=== PATIENT | female | born 2005 | race Caucasian/White ===

== ENCOUNTER 2024-05-30 12:05 | Inpatient (IN) | payer OTHER, SELFPAY ==
[2024-05-30] VITALS (21 sets, daily range): BP systolic 121–170; BP diastolic 68–112; BMI 34.2; BMI 33.5
[2024-05-30] MEDS: NSS 1000 IV (09:07)
[2024-05-30 09:14] LABS: % Basophils 0.5 % (0-2); % Immature Granulocytes 0.3 % (0-0.5); % Lymphocytes 10.5 % (20.5-51.1); % Monocytes 9.4 % (1.7-9.3); % Neutrophils 79.3 % (42.2-75.2); Absolute Basophils 0.1 10^3/uL (0-0.2); Absolute Monocytes 0.9 10^3/uL (0.1-0.6); Absolute Neutrophils 7.7 10^3/uL (1.4-6.5); Hematocrit 43.9 % (37.0-47.0); Hemoglobin 15.2 g/dL (12.0-16.0); Mean Corp Hgb Conc. 34.6 g/dL (33.0-37.0); Mean Corpuscular Hgb 28.6 pg (27.0-31.0); Mean Corpuscular Volume 82.5 fL (81.0-99.0); Mean Platelet Volume 10.4 fL (7.4-10.4); Nucleated Red Blood Cells % 0 %; Platelet Count 362 10^3/uL (130-400); Red Blood Cell Count 5.32 10^6/uL (4.20-5.40); Red Cell Dist. Width 13.2 % (11.5-14.5); White Blood Cell Count 9.7 10^3/uL (4.8-10.8)
--- NOTE | 2024-05-30 09:16 | ED.GENMED ---
History of Present Illness
General
Chief Complaint: Overdose Intentional
Source: patient
Exam Limitations: none
Time Seen by Provider: 05/30/24 08:52
Nursing documentation reviewed up to this point in time: agreed with
History of Present Illness
History of Present Illness:
19-year-old female with past with history of anxiety depression presenting to the emergency department today after purposely taking roughly 20 to 40 mg of Vyvanse, potentially 65 mg Abilify tablets and 'a handful' of Tylenol though it is very
unclear how many specifically she is unable to give any specific information about the Tylenol ingested she denies take additional Lexapro which was also confirmed by the mother. It was estimated that she took this around 7 AM which was 2 hours
prior to my assessment. She has somewhat slowed and delayed speech her pupils are somewhat dilated she is able to follow directions otherwise and answer directed questions. She is not vomiting heart rate in the 120s blood pressure mildly elevated.
Normal temperature and pulse ox.
Review of Systems
Review of Systems
Allergies reviewed?: Yes
All Other Systems: ROS reviewed and negative except as documented in HPI and ROS
Phy Exam
Physical Exam
Physical Exam:
GENERAL: Alert ,
EYE: Dilated pupils pupils equal and reactive
NECK: Supple, no significant adenopathy.
ENT: o/p clr, mmm.
CARDIAC: Regular rate and rhythm .
LUNGS: Clear breath sounds bilaterally, no acute respiratory distress, no wheezes/rales/rhonchi
ABDOMEN: Soft, without focal tenderness, no r/g, no cvat
NEUROLOGICAL: Alert and oriented, no focal neuro deficits
SKIN: Warm and dry, skin intact.
MUSCULOSKELETAL: No edema, well perfused.
PSYCH: Slow with verbal responses but able to answer questions directly. Moving all extremities normally
Course
Orders/Labs/Results
Orders:
Orders
05/30/24 08:58
Bedside Glucose- Treatment ONCE
Cardiac Monitoring- Treatment ONCE
Urinalysis Reflex To Culture Urgent
Date Specimen was Collected: 05/30/24
Time Specimen was Collected: 09:01
Urine Drug Abuse Screen Urgent
Date Specimen was Collected: 05/30/24
Time Specimen was Collected: 09:01
0.9% Sodium Chloride 1000 ml [Nss] 1,000 ml IV BOLUS
05/30/24 08:59
Electrocardiogram (*1) Stat
Reason for Study: Other
Other Reason for Exam: overdose
EKG- Treatment ONCE
Test Result ONCE
05/30/24 09:02
Acetaminophen Urgent
Alcohol Urgent
Complete Blood Count/With Diff Urgent
Comprehensive Metabolic Panel Urgent
HCG, Serum Qualitative Screen Urgent
Magnesium Urgent
Comment: ADD ON
PTT Urgent
Prothrombin Time Urgent
Salicylate Urgent
05/30/24 09:14
Crisis Consult Urgent
Reason for Consult: suicide attempt
05/30/24 09:23
Magnesium Sulfate 1 G/D5w [Magnesium Sulfate] 1 gm in 100 ml IV NOW
05/30/24 09:24
Add On- LAB Urgent
Tests Added?: Magnesium level
05/30/24 09:52
Acetylcysteine [Acetadote] 15,000 mg 0.45% Sodium Chloride 250 ml [0.45%NaCl] 200 ml IV NOW
05/30/24 11:00
Acetylcysteine [Acetadote] 5,000 mg 0.45% Sodium Chloride 500 ml [0.45%NaCl] 500 ml IV ONCE
05/30/24 15:00
Acetylcysteine [Acetadote] 10,000 mg 0.45% Sodium Chloride 1000 ml [0.45%NaCl] 1,000 ml IV ONCE
Abnormal Lab Results
05/30/24 05/30/24
09:02 09:43
Absolute Neuts (auto) 7.7 H 10^3/uL
(1.4-6.5)
Absolute Lymphs (auto) 1.0 L 10^3/uL
(1.2-3.4)
Absolute Monos (auto) 0.9 H 10^3/uL
(0.1-0.6)
Neutrophils % 79.3 H %
(42.2-75.2)
Lymphocytes % 10.5 L %
(20.5-51.1)
Monocytes % 9.4 H %
(1.7-9.3)
Carbon Dioxide 21 L mmol/L
(22-30)
Glucose 163 H mg/dl
(70-99)
Calcium 10.7 H mg/dl
(8.4-10.2)
AST 38 H U/L
(14-36)
Salicylates < 1.0 L mg/dl
(2.0-20.0)
Acetaminophen 155 H* ug/ml
(10-30)
POC Glucose 154 H mg/dl
(70-99)
05/30/24 09:02
05/30/24 09:02
Vital Signs
Initial and Last Documented VS:
Initial Vital Signs
Temp Pulse Resp BP Pulse Ox
97.8 F 122 16 156/103 98
05/30/24 08:38 05/30/24 08:38 05/30/24 08:38 05/30/24 08:38 05/30/24 08:38
Last Documented Vital Signs
Temp Pulse Resp BP Pulse Ox
97.8 F 127 20 147/107 97
05/30/24 08:38 05/30/24 10:45 05/30/24 10:00 05/30/24 10:00 05/30/24 10:45
MDM/Problems Addressed
MDM/Problems Addressed:
19-year-old female presenting to the emergency department after intentional overdose to harm herself today. Denies any attempt such as this in the past. Has cut herself in the past without intent to kill patient claims that she 2040 mg of Vyvanse,
6 5 mg of Abilify and an unclear amount of Tylenol. Case was immediately discussed with poison control and will monitor closely for Tylenol levels. Additional EKG showed prolonged QTc of 633. She was given a dose of magnesium for protection.
Otherwise will be on the monitor and monitor very closely. Initial basic labs unremarkable other than the elevated acetaminophen level 155 unclear specific time of ingestion which is somewhere between 5 and 3 hours concerning this case was again
discussed with patient will be started on NAC. Patient remained alert and oriented throughout ER stay. ICU for further monitoring.
*Critical Care Note
Total Time (30-74mins, 75-104mins- exclusive of procedures): Not Applicable
ED Attending Note
-
Portions of this chart may have been created with voice recognition software.� Occasional wrong word or��sound alike� substitutions may have occurred due to the inherent limitations of voice recognition software.
Discharge Plan
Departure
Patient Disposition: Admit
Date of Disposition: 05/30/24
Time of Disposition: 11:50
Admit to: ICU
Admit to doctor: Dania
Presentation/result/management discussed w/ accepting MD/DO: Hospitalist
Patient with high blood pressure during this ER visit?: No
Condition: Good
Covid-19: Not Applicable
Discharge Problem:
Intentional overdose, Acetaminophen overdose, QT prolongation
Prescriptions:
No Action
aripiprazole 5 mg tablet
5 mg PO DAILY
lisdexamfetamine [Vyvanse] 40 mg capsule
40 mg PO DAILY
Referrals:
NONE,* [Family Provider] -
Interventions
Interventions:
*Risk Screen - Suicide Last Done: 05/30/24 09:09
*General Assessment Last Done: 05/30/24 09:09
*Neglect/Abuse Screening Last Done: 05/30/24 09:09
ED- Cardiac Assessment Last Done: 05/30/24 09:09
ED- Neurological Assessment Last Done: 05/30/24 09:09
ED-Psychological Assessment Last Done: 05/30/24 09:09
ED- Pulmonary Assessment Last Done: 05/30/24 09:09
Discharge Date and Time
Print Language: MALTESE
[2024-05-30 09:24] LABS: HCG, Serum Qualitative Screen Negative; INR 1.01; PT 13.3 Sec (11.4-14.6)
[2024-05-30 09:37] LABS: ALT (SGPT) 33 U/L (0-35); AST (SGOT) 38 U/L (14-36); Acetaminophen 155 ug/ml (10-30); Albumin 4.8 g/dl (3.5-5.0); Alcohol None Detected; Alkaline Phosphatase 86 U/L (38-126); Blood Urea Nitrogen 9 mg/dl (7-17); Calcium 10.7 mg/dl (8.4-10.2); Carbon Dioxide 21 mmol/L (22-30); Chloride 101 mmol/L (98-107); Estimated Creatinine Clearance > 125 ml/min; Glucose 163 mg/dl (70-99); Potassium 4.1 mmol/L (3.5-5.1); Salicylate < 1.0 mg/dl (2.0-20.0); Sodium 136 mmol/L (135-145); Total Bilirubin 0.8 mg/dl (0.2-1.3); eGFR > 60.00
[2024-05-30] MEDS: MAGNESIUM SULFATE 100 IV (09:42)
[2024-05-30 09:43] LABS: APTT 23.4 Sec (23.4-35.0)
[2024-05-30 09:45] LABS: Glucose - Point of Care 154 mg/dl (70-99)
[2024-05-30 10:28] LABS: Magnesium 1.8 mg/dl (1.6-2.3)
[2024-05-30] MEDS: ACETADOTE 275 MG IV (10:50)
[2024-05-30] MEDS: ACETADOTE 525 MG IV (11:44)
[2024-05-30] MEDS: LR 1000 IV ×2 (13:15→21:06)
--- NOTE | 2024-05-30 13:30 | PTCARENOTE ---
Rec'd pt at 1305 via stretcher from the ED. Rec'd pt awake and alert but almost with a stunned affect when she was told why she was here. Is cooperative and overall calm but sl forgetful. Speech is slow and it takes pt a while to answer some
questions and even then wont fully answer them. Could not/Did not verbalize why she took the pills other than saying 'I messed up' and eluded to things being 'too much'. Very vague in her answers. Pupils are large at 7 mm but brisk reaction. Denies
headache or dizziness. WILSON. Does have some tremors at rest and with activity. Skin- face is sl flushed but skin is pale and sl diaphoretic otherwise. Respirs are shallow and tachypnic but non-labored on RA with sats of 100%. BS are clear. Monitor
ST in the 120's. VS as documented. Abd is obese with + hypoactive BS. Denies need to void currently. IV LR at 100 ml/hr and and Bag #2 of Acetylcystine at 131 mls/hr infusing via RAC IV Site. Pt able to reposition herself. 1:[address]
Pts mother at the bedside. Plan of care reviewed with pt and mother. Callbell in reach. Safe environment maintained.
--- NOTE | 2024-05-30 14:02 | CON.INTV ---
Consultation
Consultation Request
Date/Time Consultation Requested: 05/30/2024 - 1303
Date/Time Consultation Performed: 05/30/2024 - 1331
Requesting Provider: Dr. Mae
Performing Provider: Dr. Clark
Reason for Consultation: Drug Overdose
Medical History
-
Chief Complaint: Drug overdose
History of Present Illness:
19-year-old female with a past medical history of anxiety, depression and ADHD who presented with taking 3 weeks worth of Vyvanse and 2 months worth of Abilify and 'many Tylenol tablets.' In the ER she was afebrile to 97.8 �F, tachycardic to 122,
breathing 16 breaths minute, BP 156/103 and saturating 98% on room air. Labs showed normal WBC at 9.7, Hb 15.2, serum bicarbonate 21, glucose 163, AST 38, hCG negative, urinalysis with no signs of UTI, acetaminophen level initially 155 and UDS
positive for amphetamines + marijuana. CXR shows no acute pulmonary process. Patient started on N-acetylcysteine + magnesium repletion and given IVF with NS 0.9% x1L in the ER. EKG showed sinus tachycardia with ventricular rate of 116 bpm and QTc
of 633ms. Poison control contacted as well as crisis management and neck was recommended to be continued and close monitoring. Patient admitted to the ICU for close monitoring and further care, and critical care services consulted for additional
management/recommendations.
When I saw the patient she was very anxious appearing. Mother, Katie, at bedside. All questions were answered. Patient has been having difficulty sleeping for some time. She used to be on Seroquel but then it stopped working as much. The
patient currently does not have any complaints although she does feel 'spacey in her head.' Sitter is at bedside. Patient currently denies chest pain, shortness of breath, abdominal pain, fevers or chills. Patient has the cardiac leads on and
currently her QTc is 467ms.
PMHx: Anxiety/depression, ADHD
PSHx: Noncontributory
Past Medical History
Past Medical History: Other (Above as per HPI)
Past Surgical History: Other (Above as per HPI)
Social History
Tobacco: Non-smoker
Alcohol: None
Drug: Marijuana
Personal: Single
Family History
Family History: Reviewed & Not Pertinent
Allergies / Home Medications
Allergies
Allergy/AdvReac Type Severity Reaction Status Date / Time
No Known Allergies Allergy Verified 05/30/24 08:37
Home Medications
�Medication �Instructions �Recorded �Confirmed �Last Taken �Type
aripiprazole 5 mg tablet 5 mg PO DAILY 05/30/24 05/30/24 Unknown History
lisdexamfetamine 40 mg capsule 40 mg PO DAILY 05/30/24 05/30/24 Unknown History
(Vyvjoshuae)
Review of Systems
-
Unable to Obtain full review of systems at this time due to: Acuity
Vitals / Labs / Diagnostic Testing
Vital Signs
Temp Pulse Resp BP Pulse Ox
98.8 F 109 34 164/106 99
05/30/24 13:20 05/30/24 14:00 05/30/24 14:00 05/30/24 14:00 05/30/24 14:00
Lab Data
05/30/24 09:02
05/30/24 09:02
Laboratory Results
05/30/24
09:02
PT 13.3
INR 1.01
APTT 23.4
Diagnostic Testing:
Physical Exam
-
HEENT: Normocephalic and Anicteric
Cardiovascular: S1/S2 and Peripheral Edema (negative)
Respiratory: Clear, Wheeze (negative), Rales (negative), Rhonchi (negative) and Non-Labored Respirations
GI: Soft, Distended (Abdominal obesity), Non Tender and Normal Bowel Sounds
Neurology: Awake, Alert and Other (Mydriatic pupils)
Skin: Warm and Dry
General: Respiratory Distress (negative), Comfortable, Chills (negative) and Sweats (negative)
Assessment
-
Assessment: 19-year-old female with a PMHx of anxiety, depression and ADHD who presented with taking 3 weeks worth of Vyvanse and 2 months worth of Abilify and 'many Tylenol tablets.' In the ER she was afebrile to 97.8 �F, tachycardic to 122,
breathing 16 breaths minute, BP 156/103 and saturating 98% on room air. Labs showed normal WBC at 9.7, Hb 15.2, serum bicarbonate 21, glucose 163, AST 38, hCG negative, urinalysis with no signs of UTI, acetaminophen level initially 155 and UDS
positive for amphetamines + marijuana. CXR shows no acute pulmonary process. Patient started on N-acetylcysteine + magnesium repletion and given IVF with NS 0.9% x1L in the ER. EKG showed sinus tachycardia with ventricular rate of 116 bpm and QTc
of 633ms. Poison control contacted as well as crisis management and neck was recommended to be continued and close monitoring. Patient admitted to the ICU for close monitoring and further care, and critical care services consulted for additional
management/recommendations.
Chronic conditions [employer]: Anxiety/depression, ADHD
Impression:
#Multidrug overdose with Vyvanse, Abilify + Tylenol
#Sinus tachycardia
#History of anxiety/depression
#ADHD
#Marijuana use (THC positive on urine drug screen)
#Obesity (BMI: 33.4)
Plan:
- Admit to the ICU for further monitoring with continuous telemetry and monitoring of QTc
- Maintain SpO2 >90-94%
- prn nebulized bronchodilators
- Aspiration precautions
- Maintain MAP>65
- Trend QTc with daily EKG
- Psychiatry consult
- 1:1 at bedside
- Follow up recommendations from toxicology
- Regarding her Tylenol overdose:
- Continue NAC protocol, trend LFTs and Tylenol level
- Trend PT/INR
- Monitor for worsening confusion; check AM ammonia level
- Regarding her Abilify overdose:
- Monitor for neuroleptic malignant syndrome
- Monitor for extrapyramidal symptoms including tardive dyskinesia
- Monitor for dystonia, seizures, hyperthermia and anticholinergic effects as well
- With history of marijuana use there is a potential for 'synthetic marijuana,' aka K2 or Spice
- Does not show up on UDS
- Monitor for agitation, seizures, and psychosis
- Treat with benzodiazepines such as Ativan, although with her history of suspected suicide attempt, would try to avoid narcotics if possible
- Replete electrolytes with K>4, Mg>2
- Maintain euglycemia with goal BG 140-180
- Incentive spirometer
- DVT ppx
Critical care statement: A total of 42 minutes of critical care time was provided for this patient today. This includes management of unstable vital signs, evaluation of the patient at bedside, reviewing the patient's pertinent medical records
including radiographs, microbiology, laboratory evaluations, and discussion with primary team, consultants, pharmacy, nutrition, physical therapy, case management, charge nurse, critical care nursing, and respiratory therapy.
--- NOTE | 2024-05-30 14:30 | PTCARENOTE ---
Labs sent per MD order. Pt remains calm and cooperative. Sl shaky but denies discomfort.
--- NOTE | 2024-05-30 14:45 | PTCARENOTE ---
Assessments under the name Alla Zaldivar RN were done by Harriet Pardo RN
--- NOTE | 2024-05-30 15:07 | HPS.HSE ---
Family Physician
-
Family Physician: * NONE
Chief Complaint
-
overdose
History of Present Illness
19-year-old female with past with history of anxiety, depression, presenting to the emergency department today after purposely taking roughly 20 to 40 mg of Vyvanse, potentially 65 mg Abilify tablets and 'a handful' of Tylenol. Unclear how many.
Denies take additional Lexapro which was also confirmed by the mother. NO exact time of intake but states took around 7 am, 2 hours prior to ED evaluation. QTC 633, HR 120s, hypertensive, tachycardic. On physical exam - speech slowed and delayed.
Mild dilated pupils. LFTS WNL - Tylenol level elevated at 155. Poison control was contacted, crisis management contacted, started on NAC.
Medical History
Past Medical History
Past Medical History: Reports Other (Anxiety, depression)
Past Surgical History: Reports None
Social History
Tobacco: Non-smoker
Personal: Single
Family History
Family History: Not pertinent
Allergies / Home Medications
Allergies reflects when Allergies were last updated in [facility].
Home Medications with original date entered in [facility]
Allergy/Medication List:
Allergies
Allergy/AdvReac Type Severity Reaction Status Date / Time
No Known Allergies Allergy Verified 05/30/24 08:37
Home Medications
aripiprazole 5 mg tablet 5 mg PO DAILY 05/30/24
lisdexamfetamine 40 mg capsule (Vyvanse) 40 mg PO DAILY 05/30/24
Review of Systems
-
History Source: Patient
A 12 point ROS was completed and negative except as noted: Yes
Physical Exam
Vital Signs
Vital Signs
Temp Pulse Resp BP Pulse Ox
98.8 F 109 34 164/106 99
05/30/24 13:20 05/30/24 14:00 05/30/24 14:00 05/30/24 14:00 05/30/24 14:00
Physical Exam
Psych: Other
Laboratory Results
-
05/30/24 09:02
05/30/24 09:02
Laboratory Results
PT 13.3 Sec (11.4-14.6) 05/30/24 09:02
INR 1.01 05/30/24 09:02
APTT 23.4 Sec (23.4-35.0) 05/30/24 09:02
Total Bilirubin 0.8 mg/dl (0.2-1.3) 05/30/24 09:02
AST 38 U/L (14-36) H 05/30/24 09:02
ALT 33 U/L (0-35) 05/30/24 09:02
Alkaline Phosphatase 86 U/L (38-126) 05/30/24 09:02
Data Reviewed
-
Diagnostic Radiology: Image Personally Visualized and interpreted and Report Reviewed by me
Lab Data: Labs Reviewed by me
Impression/Plan
-
Physical Exam:
GENERAL: Alert ,
EYE: Dilated pupils pupils equal and reactive
NECK: Supple, no significant adenopathy.
ENT: o/p clr, mmm.
CARDIAC: Regular rate and rhythm . Tachycardic
LUNGS: Clear breath sounds bilaterally, no acute respiratory distress, no wheezes/rales/rhonchi
ABDOMEN: Soft, without focal tenderness, no r/g, no cvat
NEUROLOGICAL: Alert and oriented, no focal neuro deficits
SKIN: Warm and dry, skin intact.
MUSCULOSKELETAL: No edema, well perfused.
PSYCH: Slow with verbal responses but able to answer questions directly. Moving all extremities normally
IMPRESSION:
19-year-old presents for overdosing, elevated QTc, hypertensive, tachycardic.
PLAN:
#Overdose
#Acute metabolic encephalopathy
�20 to 40 mg of Vyvanse, potentially 65 mg Abilify , Tylenol
-Monitor QTc
-F/u EKG again this evening and daniel morning
-Cont IVF
-F/u Tyl level
-NAC
-Admit to ICU for further monitoring, intervention
-Poison/Crisis/Psych consulted
-Mag given, f/u tomorrow
#Hypertension
#Tachycardia
-2/2 to overdose meds
-cont to monitor
#Anxiety
#Depression
-see plan above
-f/u psych recs
#DVT ppx
HSQ
[2024-05-30 15:19] LABS: Acetaminophen 54 ug/ml (10-30); Creatine Phosphokinase 62 U/L (30-135)
[2024-05-30 15:28] LABS: Urine Albumin Negative (Neg - Trace); Urine Bilirubin Negative (Negative); Urine Character Clear (Clear); Urine Color Yellow; Urine Glucose Negative (Negative); Urine Ketone 1+ (Negative); Urine Leukocyte Negative (Negative); Urine Nitrite Negative (Negative); Urine Occult Blood Negative (Negative); Urine Specific Gravity 1.015 (<1.030); Urine Urobilinogen Negative (Neg - 1+)
--- NOTE | 2024-05-30 15:30 | PTCARENOTE ---
Pt calm- sl more conversant. Still slow to answer some questions, but quicker than earlier. Pt assisted with assist of 1 on to the BSC. Pt is shaky but easily able to bear wt and was steady on her feet. Voided 600 mls yellow urine. UA and UDS sent.
--- NOTE | 2024-05-30 15:39 | CM ---
Patient seen at bedside with 1:1 and patient mother. Patient pending psych assessment. No documentation on chart, from crisis. Per grout worker they have not seen patient in ED. Per patient and mother patient is not in school and is looking for
work, likes to draw play with her cats and visit with friends. patient indicated that she would talk to psychiatry and did not currently feel that she felt she would harm herself at this time. patient states that she does not have a current PCP and
that she had seen Dr. Sweet but did not know if she wanted to return to see her/ patient mother indicated that they were thinking of transitioning to another physician. Patient uses the [facility] in [place]. Patient has packet from [employer] but had not yet
signed up for any programs. Patient envisions having a therapist and being able to work out daily as good supports when asked what she sees as helping her at discharge. CM will continue to follow for discharge planning needs.
Plan; psych assessment; supports as recommended.
[2024-05-30 15:44] LABS: Amphetamines Positive (Negative); Marijuana Positive (Negative)
[2024-05-30 15:45] LABS: Barbiturates Negative (Negative); Benzodiazepines Negative (Negative); Buprenorphine Negative (Negative); Cocaine Negative (Negative); Methadone Negative (Negative); Methamphetamines Negative (Negative); Opiates Negative (Negative); Phencyclidine Negative (Negative); Tricyclic Antidepressants Negative (Negative)
--- NOTE | 2024-05-30 16:00 | PTCARENOTE ---
Pt overall is 'brighter' and a little more conversant. Denies pain. COWS score is an 8. Pupils are at a 6 but brisk. Denies headache. Still with sl tremor but mostly with doing activity-less so at rest. Skin is sl sweaty. Pt repositioning herself.
Mother remains at the bedside. Dr. Caraballo in to see pt currently. 1:1 observation maintained
[2024-05-30 16:17] LABS: Fentanyl, Urine Negative (Negative)
[2024-05-30] MEDS: ACETADOTE 1050 MG IV (16:22)
--- NOTE | 2024-05-30 16:22 | CON.MD ---
Consultation - Medical
-
patient seen chart reviewed. discussed w nursing. mother at bedside. martha is a 19 year old woman who overdosed with tylenol vyvanse and abilify earlier today. she was rather vague in her presentation . she did make attempts to answer my ? but
had a hard time expressing herself which mother said preceded the overdose. mother said they were considering an evaluation with a psychologist prior to this recent event. martha did go to crisis last night. she cannot say exactly why but did
answer yes with some qualifications to the question 'were you depressed and anxious. she left crisis denying that she was suicidal and agreeing to a suicide prevention plan with a goal to enter the [facility]. mom was
to keep her meds but martha did have access to them. she went to her mother for help after the overdose and was brought to . she is currently being rx for a tylenol level of 54 with mucormyst. she said of the reason for the overdose:'i just felt
like nothing was safe in my head for some reason'. she could not describe any specific fears. she then stated 'group mentality' as something which frightened her. mom feels the alevism of [employer] caused martha's world to implode. she was rowing for a
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 she did graduate from school but could not really find herself after that not able to succeed in jobs or furthering education. sleep is not good.
appetite is 'picky'. she has not lost a lot of weight. she does not enjoy much. energy level fair. she has not made other suicide attempts. she admits she tried to feel better with etoh...no longer drinks. she denied other substances to me but
cannabis in uds and nsg told me she 'vapes (?mj?) not infequently and had tried mushrooms. she denies hallucinations. at one point however told me she picks up on things others do not see. i asked her to give me an example of what she said was a
'nuance' and she said she might see things in the shape of the clouds.
past psych hx no prior hospitalizations. she has seen a therapist richard for years whom she said told her she was a 'very sensitive person'. she has been on lexapro and zoloft which she felt made her feel worse. she felt silly happy. she sees 'dr
collin' a legislative correspondent in dr sarabia's practice (he is psychiatrist) and is prescribed vyvanse 40 mg for adhd dx after covid abilify 5 mg daily.
medical hx see above re overdose also in uds cannabis and amphets (vyvanse)
fh depression some etoh abuse
substance abuse see above
social resides w father. two older sibs who live outside home. not working. hs grad see above said she was bullied at school but added 'Not much' and 'everyone is' alluded to emdr rx by therapist and i asked her about trauma but she did not
answer
mse alert and fully oriented. long latency between question and answer. thought process seemed slowed which mom said preceded the od. very vague answers to questions which were not necessarily germane to the ? asked. sometimes it was difficult to
decipher e xactly what she meant . denied hallucinations no overt delusions but the answer about nuances in the clouds was unusual. she said 'yes' that she was happy to be alive re ' of continued si aver intelligence insight judgment impaired
dx unspecified depression r.o underlying psychosis r.o autism spectrum by history adhd r/o bipolar (i did not hear specific sx which would suggest bipolar but i did not ask her all of my ? re bipolar given difficulty in getting answers)
recommendations for now continue medical rx. will see her tomorrow and try to get more history. also she may be more able to engage in discussion as she gets through rx for the overdose. certainly i recommend avoiding illicit substances . would
continue one to one for now. will follow
[2024-05-30] MEDS: HEPARIN 5000 UNITS SC ×2 (16:23→23:08)
--- NOTE | 2024-05-30 16:40 | PTCARENOTE ---
#3 bag Acetycystine hung per md order via R AC IV site. ECG done per md order. QTC 444. Denies nausea.
--- NOTE | 2024-05-30 18:10 | PTCARENOTE ---
Eating dinner. No changes in assessment. 1:1 observation maintained
--- NOTE | 2024-05-30 20:00 | PTCARENOTE ---
on assessment pt AAOx3, slow to answer but oriented, family at bedside, denies pain, SR/ST on the monitor, RA, regular diet, 1:1 at bedside.
[2024-05-30] MEDS: MELATONIN 10 MG PO (21:06)
[2024-05-31] VITALS (13 sets, daily range): BP systolic 123–156; BP diastolic 73–103; BMI 33.0
--- NOTE | 2024-05-31 00:10 | PTCARENOTE ---
no changes from prior assessment, AAOx3 denies pain and SOB, 1:1 at bedside.
--- NOTE | 2024-05-31 04:29 | PTCARENOTE ---
no changes from prior assessment, pt more alert and responsive to questions, pt having loose BMs, sitter at bedside. no pain or SOB.
[2024-05-31 06:20] LABS: Hematocrit 37.6 % (37.0-47.0); Hemoglobin 12.9 g/dL (12.0-16.0); Mean Corp Hgb Conc. 34.3 g/dL (33.0-37.0); Mean Corpuscular Hgb 28.9 pg (27.0-31.0); Mean Corpuscular Volume 84.3 fL (81.0-99.0); Mean Platelet Volume 10.5 fL (7.4-10.4); Platelet Count 249 10^3/uL (130-400); Red Blood Cell Count 4.46 10^6/uL (4.20-5.40); Red Cell Dist. Width 13.2 % (11.5-14.5); White Blood Cell Count 9.1 10^3/uL (4.8-10.8)
[2024-05-31 06:30] LABS: Ammonia < 9 umol/L (9-30); INR 1.22; PT 15.5 Sec (11.4-14.6)
[2024-05-31 06:31] LABS: APTT 26.9 Sec (23.4-35.0)
[2024-05-31 06:32] LABS: ALT (SGPT) 28 U/L (0-35); AST (SGOT) 25 U/L (14-36); Acetaminophen < 10 ug/ml (10-30); Albumin 3.6 g/dl (3.5-5.0); Alkaline Phosphatase 50 U/L (38-126); Blood Urea Nitrogen 6 mg/dl (7-17); Calcium 9.4 mg/dl (8.4-10.2); Carbon Dioxide 19 mmol/L (22-30); Chloride 111 mmol/L (98-107); Direct Bilirubin 0.1 mg/dl (0.0-0.4); Estimated Creatinine Clearance > 125 ml/min; Glucose 95 mg/dl (70-99); LDH 167 U/L (120-246); Magnesium 1.8 mg/dl (1.6-2.3); Potassium 3.8 mmol/L (3.5-5.1); Sodium 139 mmol/L (135-145); Total Bilirubin 0.5 mg/dl (0.2-1.3); Total Protein 6.1 g/dl (6.3-8.2); eGFR > 60.00
[2024-05-31] MEDS: HEPARIN 5000 UNITS SC (07:21)
--- NOTE | 2024-05-31 07:41 | PTCARENOTE ---
report received, assessments per work list. patient awake, conversant. tremors noted. no voiced suicidal ideation. 1:[address](Lela). monitor nsr, lungs clear. abdomen soft. safe environment maintained.
[2024-05-31] MEDS: LR 1000 IV (08:30)
--- NOTE | 2024-05-31 08:55 | W.PN.INTV ---
Today's Communication / Plan
Recommendations
Trend QTc
Psychiatry consult
1: 1 at bedside
Up OOB as tolerated
Patient doing well, breathing comfortably on room air saturating 97-98%, QTc is in the 460s, and she is more alert today and interactive. Patient stable for downgrade out of ICU to telemetry. Automotive Professional/Pulmonary service will now sign off.
Please reconsult if there are any additional questions/concerns, or if patient's respiratory status deteriorates.
Assessment
-
Assessment: 19-year-old female with a PMHx of anxiety, depression and ADHD who presented with taking 3 weeks worth of Vyvanse and 2 months worth of Abilify and 'many Tylenol tablets.' In the ER she was afebrile to 97.8 �F, tachycardic to 122,
breathing 16 breaths minute, BP 156/103 and saturating 98% on room air. Labs showed normal WBC at 9.7, Hb 15.2, serum bicarbonate 21, glucose 163, AST 38, hCG negative, urinalysis with no signs of UTI, acetaminophen level initially 155 and UDS
positive for amphetamines + marijuana. CXR shows no acute pulmonary process. Patient started on N-acetylcysteine + magnesium repletion and given IVF with NS 0.9% x1L in the ER. EKG showed sinus tachycardia with ventricular rate of 116 bpm and QTc
of 633ms. Poison control contacted as well as crisis management and neck was recommended to be continued and close monitoring. Patient admitted to the ICU for close monitoring and further care, and critical care services consulted for additional
management/recommendations.
Chronic conditions INSTRUCTOR NURSE: Anxiety/depression, ADHD
Impression:
#Multidrug overdose with Vyvanse, Abilify + Tylenol
#Sinus tachycardia - resolved
#History of anxiety/depression
#ADHD
#Marijuana use (THC positive on urine drug screen)
#Obesity (BMI: 33.4)
Plan:
- Admitted to the ICU for further monitoring with continuous telemetry and monitoring of QTc
- QTc is now controlled and <480ms for >12-16 hours now
- She is breathing comfortably in no acute distress and on room air saturating >96%
- Maintain SpO2 >90-94%
- prn nebulized bronchodilators
- Aspiration precautions
- Maintain MAP>65
- Trend QTc with daily EKG
- Psychiatry consult
- 1:1 at bedside
- Follow up recommendations from toxicology
- Regarding her Tylenol overdose:
- she is s/p NAC protocol, trend LFTs and Tylenol level (tylenol level now undetectable)
- Trend PT/INR
- Monitor for worsening confusion; ammonia level is WNL at <9 this AM
- Regarding her Abilify overdose --> she has no signs of NMS, dystonia, no seizure-like activity and she remains afebrile
- Monitor for neuroleptic malignant syndrome
- Monitor for extrapyramidal symptoms including tardive dyskinesia
- Monitor for dystonia, seizures, hyperthermia and anticholinergic effects as well
- With history of marijuana use there is a potential for 'synthetic marijuana,' aka K2 or Spice
- Does not show up on UDS
- Monitor for agitation, seizures, and psychosis
- Treat with benzodiazepines such as Ativan, although with her history of suspected suicide attempt, would try to avoid narcotics if possible
- Replete electrolytes with K>4, Mg>2
- Maintain euglycemia with goal BG 140-180
- Incentive spirometer
- DVT ppx
Patient doing well, breathing comfortably on room air saturating 97-98%, QTc is in the 460s, and she is more alert today and interactive. Patient stable for downgrade out of ICU to telemetry. Autom[employer] Professional/Pulmonary service will now sign off. Thank
you for allowing us to be involved in the care of this patient. Please reconsult if there are any additional questions/concerns, or if patient's respiratory status deteriorates.
Total time spent today was 55 minutes for this encounter. Time includes reviewing laboratory test/imaging results, reviewing pertinent medical records, obtaining and reviewing medical history, performing an appropriate exam, ordering medications,
tests and procedures. Time also includes documentation of this encounter, coordinating patient care and communicating with other healthcare professionals. Total time does not include separately billed tests performed on this date of service.
Subjective Dataa
Subjective Data
Date of Service:
Date of Service: May 31, 2024
Chief Complaint: Automotive Professional Follow Up
Subjective:
Patient seen and evaluated this morning. NAC is off. QTc 435ms. Still on LR at 100cc/hr. she feels well. Mother at bedside -all questions were answered. Pt on room air saturating 96%. Heart rate 86, BP 146/83. She feels well, smiling this
morning. In no acute distress. Denies chest pain, shortness of breath, fevers or chills.
Review of Systems
General: Other (Negative unless mentioned above)
Objective Data
Data Reviewed
Vital Signs / I&O / Oxygen:
Vital Signs
Temp Pulse Resp BP Pulse Ox
98.6 F 107 16 146/83 96
05/31/24 07:00 05/31/24 10:10 05/31/24 07:30 05/31/24 10:10 05/31/24 08:00
Intake and Output
05/30/24 05/31/24 06/01/24
06:59 06:59 06:59
Intake Total 3952.4 / 4117.9 956.7 / 956.7
Output Total 1050 / 1050
Balance 2902.4 / 3067.9 956.7 / 956.7
SaO2 96
Physical Exam
General: Respiratory Distress (Negative) and Comfortable
HEENT: Normocephalic and Anicteric
Cardiovascular: S1-S2 and Peripheral Edema (Negative)
Respiratory: Clear, Wheeze (Negative), Crackles (Negative), Rhonchi (Negative) and Non-Labored Respirations
GI: Soft, Distended (Abdominal obesity), Non Tender and Normal Bowel Sounds
Neurology: Awake, Alert and Other (Mydriatic pupils at +6 bilaterally and reactive to light bilaterally)
Skin: Warm, Dry and Jaundice (Negative)
Labs/Micro/Reports
Lab Data
05/31/24 06:07
05/31/24 06:07
Laboratory Results
05/31/24
06:07
PT 15.5 H
INR 1.22
APTT 26.9
--- NOTE | 2024-05-31 12:59 | PTCARENOTE ---
tele level of care. mother at bedside. no changes in assessments. 1:1 observation by PCT Lela
--- NOTE | 2024-05-31 13:52 | CM ---
Addendum entered by Fernando Alvarez 05/31/24 16:23:
Both pt and her father who presents in the room are aware, expressed their agreement with [facility].
Addendum entered by Fernando Alvarez 05/31/24 16:15:
CM received a phone call from [facility] admissions department service representative and spoke to other representatives and they confirmed that they do have a bed available and pt is accepted for admission today and they will do an auth for inpatient
psychiatric level of care. Per Linda, no nursing report is required.
Original 201 form must to go with the crew, a copy remains on chart.
arranged ambulance BLS with Acute care ambualnce, supervisor picking crew time 7:00 p.m. [facility] completed and left with .
D/C plan: [facility].
Addendum entered by Fernando Alvarez 05/31/24 14:30:
According to MD pt is medically stable to be discharged.
CM discussed opt's case with psychiatrist, inpatient psychiatric level of care recommended. voluntary commitment, 201 form signed.
CM discussed with pt and her family options of inpatient psychiatric hospitals. Following inpatient psychiatric hospitals preferred: [facility], [facility], [facility]
A referral to above inpatient psychiatric hospitals made. Awaiting for determination.
D/C plan: Inpatient psychiatric hospital.
Original Note:
CM following re: discharge planning.
Reviewed pt's chart, met with pt. pt's mother and pt's father at bedside.
Pt presents lying in the bed with depressed mood, labile affect, rapid switching from sadness to smiling. Pt reports she lives with mother and a father, has 2 siblings and they live outside of the house. Pt reports she diagnosed with depression when
she was in 11th grade, has outpatient psychiatrist Judah Hartley and sees periodically nurse practitioner Lela Harris. Pt admitted she intentionally overdosed by taking a bunch of medications. Pt stated she felt her life is not worthy anymore, she has
no job and she has difficulties to keep her daily routine. Pt stated: 'I want my daily routine being settled'. Pt stated this is her first overdose and pt feels that medications she has been taking not working. Pt expressed her desire to go to
inpatient psychiatric hospital to adjust medications and to improve mood and behaviors. Both pt's mother and pt's father supports pt's plan.
Psychiatry consult noted - continue medical treatment recommended. Awaiting for updated psychiatry evaluation and recommendations.
D/C plan: most likely inpatient psychiatric level of care and pt agrees. 201 commitment.
CM will follow with discharge plan updates as hospitalization progresses
--- NOTE | 2024-05-31 15:01 | W.PN.UPDATE ---
Update Note
Progress Note Update
patient seen chart reviewed. discussed w nursing and cm. father was at bedside. father provided hx that substantiates what i thought i detected yesterday. he describes that patient has been 'paranoid' about police and others out to harm her which
is what i suspected. even today when he spoke of it she tried to interject and deny that this was an issue. he also described that she was getting messages from tv programs she was watching. in recent weeks she seemed so disturbed and frightened
by this she started to consume alcohol to quiet her fears. this could be the beginning of a schizophrenic illness or major depression w psychosis or bipolar w psychosis. she has recovered from the overdose and i am told she is medically cleared
for psych hospitalization to which she does agree and she was willing to sign a 201 for admit to psych. patient clearly did not seem to be happy with the disclosures her father made. in the interest of helping her to refocus i asked her to tell me
about rowing which she had enjoyed for years. i did recommend that before resuming stimulants she should be treated with antipsychotics to the point where the paranoid fears have resolved explaining that sometimes stimulants can contribute to
psychosis. did not start antipsychotics today given overdose with abilify yesterday
--- NOTE | 2024-05-31 15:17 | W.PN.HOSP.TC ---
Addendum entered and electronically signed by Tye Mae MD 06/01/24 15:18:
[id number]
Addendum entered and electronically signed by Tye Mae MD 05/31/24 16:14:
DC today to Behavioral health Program; Hold antipsychotics until cleared by psychiatry outpatient
Original Note:
Today's Communication/Plan
-
Can DG
Psych Recs
Assessment / Plan
Assessment / Plan
Physical Exam:
GENERAL: Alert ,
EYE: Dilated pupils pupils equal and reactive
NECK: Supple, no significant adenopathy.
ENT: o/p clr, mmm.
CARDIAC: Regular rate and rhythm . Tachycardic
LUNGS: Clear breath sounds bilaterally, no acute respiratory distress, no wheezes/rales/rhonchi
ABDOMEN: Soft, without focal tenderness, no r/g, no cvat
NEUROLOGICAL: Alert and oriented, no focal neuro deficits
SKIN: Warm and dry, skin intact.
MUSCULOSKELETAL: No edema, well perfused.
PSYCH: Slow with verbal responses but able to answer questions directly. Moving all extremities normally
19-year-old presents for overdosing, elevated QTc, hypertensive, tachycardic.
PLAN:
#Overdose
#Acute metabolic encephalopathy
�20 to 40 mg of Vyvanse, potentially 65 mg Abilify , Tylenol
-Monitor QTc - resolved
-Cont IVF
-F/u Tyl level - improving
-S/p NAC
-Poison/Crisis/Psych consulted
-Mag given, f/u tomorrow
#Hypertension
#Tachycardia
-2/2 to overdose meds
-cont to monitor
#Marijuana use (THC positive on urine drug screen)
#Anxiety
#Depression
-see plan above
-f/u psych recs
#DVT ppx
HSQ
Anticipated Discharge: Today
Subjective/Interval History
-
Date of Service: May 31, 2024
much more alert/oriented today
Objective Data
-
Labs:
Laboratory Results
05/31/24
06:07
WBC 9.1
Hgb 12.9
Hct 37.6
Plt Count 249 D
PT 15.5 H
INR 1.22
APTT 26.9
Sodium 139
Potassium 3.8
Chloride 111 H
Carbon Dioxide 19 L
BUN 6 L
Creatinine 0.5 L
Glucose 95
Calcium 9.4
Total Bilirubin 0.5
AST 25
ALT 28
Alkaline Phosphatase 50
Vital Signs:
Vital Signs
Temp Pulse Resp BP Pulse Ox
98.4 F 77 18 123/76 97
05/31/24 15:00 05/31/24 15:02 05/31/24 15:04 05/31/24 15:02 05/31/24 15:04
I&O
05/30/24 05/31/24 06/01/24
06:59 06:59 06:59
Intake Total 3952.4 / 4117.9 1486.7 / 1486.7
Output Total 1050 / 1050
Balance 2902.4 / 3067.9 1486.7 / 1486.7
Review of Systems
-
History Source: Patient
All other systems: Not reviewed unless documented
Data Reviewed
-
Labs: Labs Reviewed by me
--- NOTE | 2024-05-31 16:13 | W.DS.TRANS ---
DC Summary - Explosive Ordnance Specialist
-
Discharge Instructions:
Discharge Diagnosis/Procedures Overdose
Instructions:
Stand-Alone Forms:
Changes to Home Medications: Yes
Discharge Medications:
DC Medications w/original date entered in [employer]
aripiprazole 5 mg tablet 5 mg PO DAILY Mental Health/Anxiety 05/30/24
lisdexamfetamine 40 mg capsule (Vyvanse) 40 mg PO DAILY ADHD 05/30/24
Home Medication Changes
Holding
aripiprazole 5 mg tablet 5 mg PO DAILY Mental Health/Anxiety 05/30/24
lisdexamfetamine 40 mg capsule (Vyvanse) 40 mg PO DAILY ADHD 05/30/24
Pending Results: No
--- NOTE | 2024-05-31 16:20 | PTCARENOTE ---
patient discharge written. call to [facility] [phone]. spoke with Anjelica, updated with [facility] transport time. attempted to give nursing report. she stated they go by clinicals sent, and do not require nursing to nursing report. patient and
family updated with [facility] time@1900
[2024-06-03 10:55] LABS: Haptoglobin 207 mg/dL (30-200)
== END 2024-05-31 19:23 | DRG 917 ==
LOC: ICU 12:05
PROVIDERS: Physician Assistant; ADMITTING PHYSICIAN Internal Medicine; CONSULT PHYSICIAN Internal Medicine Critical Care Medicine; CONSULT PHYSICIAN Psychiatry & Neurology Psychiatry; EMERGENCY PHYSICIAN Emergency Medicine
DX: T43.622A Poisoning by amphetamines, intentional self-harm, initial encounter (principal); G93.41 Metabolic encephalopathy; F32.A Depression, unspecified; I10 Essential (primary) hypertension; E66.9 Obesity, unspecified; Z68.33 Body mass index [BMI] 33.0-33.9, adult; T43.592A Poisoning by other antipsychotics and neuroleptics, intentional self-harm, initial encounter; T39.1X2A Poisoning by 4-Aminophenol derivatives, intentional self-harm, initial encounter; F41.9 Anxiety disorder, unspecified; F90.9 Attention-deficit hyperactivity disorder, unspecified type; F12.90 Cannabis use, unspecified, uncomplicated; G47.9 Sleep disorder, unspecified; R00.0 Tachycardia, unspecified; R94.31 Abnormal electrocardiogram [ECG] [EKG]; Z79.899 Other long term (current) drug therapy; Z81.8 Family history of other mental and behavioral disorders
CPT/HCPCS: 51798; 71045; 80053; 80143; 80179; 80306; 80307; 81003; 82077; 82140; 82248; 82550; 82962; 83010; 83615; 83735; 84703; 85025; 85027; 85610; 85730; 93005; 96361; 96365; 96375; 96376; 99285; J0132; J7030

== ENCOUNTER 2025-01-07 01:43 | Emergency (ER) | payer OTHER, SELFPAY ==
[2025-01-07 01:46] VITALS: BP 147/97
--- NOTE | 2025-01-07 02:14 | ED.GENMED ---
History of Present Illness
General
Chief Complaint: Crisis Evaluation
Source: patient and family (Mother)
Time Seen by Provider: 01/07/25 01:59
History of Present Illness
History of Present Illness:
19-year-old female who called the police actually on her mother. She has had some anxiety the patient over the last few weeks. Poor intake poor sleeping despite sleeping medication. Mom noted some mild paranoid behavior. She went out for a walk
mom followed her patient became paranoid that mom was going to do something following her and called the police herself. She recognizes that she is off and needs help. Similar episode last May ended up with an overdose.
Review of Systems
Review of Systems
All Other Systems: Not applicable
Constitutional: Denies fever or chills
Respiratory: Reports no symptoms
Cardiac: Reports no symptoms
ABD/GI: Reports no symptoms
Phy Exam
Physical Exam
Physical Exam:
GENERAL: Alert and oriented in no apparent distress
EYE: Orbits normal.
NECK: Supple, no significant adenopathy.
ENT: Pharynx without erythema
CARDIAC: Regular rate and rhythm without any obvious murmurs.
LUNGS: Clear breath sounds,normal
ABDOMEN: Soft, without focal tenderness or distention
NEUROLOGICAL: Alert and oriented , grossly non-focal
SKIN: Warm and dry, no rash or lesion, no discoloration, skin intact.
MUSCULOSKELETAL: No edema,no deformity.Good color
PSYCH: Normal and appropriate interaction.
Course
Orders/Labs/Results
Orders:
Orders
01/07/25 02:02
Crisis Consult Urgent
Reason for Consult: Paranoid psychosis
01/07/25 02:14
Test Result ONCE
01/07/25 02:49
Alcohol Urgent
Basic Metabolic Panel Urgent
Complete Blood Count/With Diff Urgent
HCG, Serum Qualitative Screen Urgent
TSH Reflex To Free T4 Urgent
01/07/25 03:02
PSYCHIATRY CONSULT Urgent
Consulting Provider: Lora Martin
Was physician already notified: No
Reason for consult: paranoid behavior/hx of suicide attempt
01/07/25 03:03
Consult Notification Routine
Specialty to Notify: Psychiatry
Date consulting provider notified: 01/07/25
Time consulting provider notified: 08:47
Notified:: Provider
01/07/25 07:46
Urine Drug Abuse Screen Urgent
Date Specimen was Collected: 01/07/25
Time Specimen was Collected: 06:40
01/07/25 10:24
ED Special Safety Observation ONCE
Observation level: Intermittent Observation
01/07/25 11:05
Ibuprofen [Motrin] 600 mg PO NOW STA
Ondansetron Orally Disint [Zofran Odt (Orally Disintegrating)] 4 mg PO NOW STA
01/07/25 12:28
Nicotine [Nicoderm Transdermal] 14 mg TRANSDERM NOW STA
01/07/25 15:09
Lorazepam [Ativan] 1 mg PO NOW STA
Abnormal Lab Results
01/07/25 01/07/25
02:49 07:46
Absolute Neuts (auto) 8.3 H 10^3/uL
(1.4-6.5)
Absolute Lymphs (auto) 0.9 L 10^3/uL
(1.2-3.4)
Absolute Monos (auto) 0.7 H 10^3/uL
(0.1-0.6)
Neutrophils % 83.2 H %
(42.2-75.2)
Lymphocytes % 9.4 L %
(20.5-51.1)
BUN 3 L mg/dl
(7-17)
Glucose 129 H mg/dl
(70-99)
U Marijuana (THC) Screen Positive H
(Negative)
01/07/25 02:49
01/07/25 02:49
Vital Signs
Initial and Last Documented VS:
Initial Vital Signs
Temp Pulse Resp BP Pulse Ox
98.6 F 109 18 147/97 96
01/07/25 01:46 01/07/25 01:46 01/07/25 01:46 01/07/25 01:46 01/07/25 01:46
Last Documented Vital Signs
Temp Pulse Resp BP Pulse Ox
97.6 F 76 20 115/81 99
01/07/25 08:00 01/07/25 08:00 01/07/25 08:00 01/07/25 08:00 01/07/25 08:00
MDM/Problems Addressed
Differential Diagnosis Includes:
Patient with some paranoid behavior poor sleep pattern. Not acutely suicidal. Clearly not homicidal and has done nothing imminently danger to herself however based on a history of a similar type of episode she seems to be starting the process of
early paranoid behavior with possible mild psychosis pattern. Again however not suicidal not homicidal has no plan for any intent of hurting herself.
Per crisis, apparently has not been faithful with her medications. Crisis does not recommend inpatient management. However patient and mom are uncomfortable at this time going home. Reasonable given her history in similar situations. That she is
not committable currently. We will hold her to the morning and have a psychiatry consult in the morning
*Pulse Oximetry
Patient hypoxic: no
*Critical Care Note
Total Time (30-74mins, 75-104mins- exclusive of procedures): Not Applicable
Data Reviewed
Review of Other/Old Records Reveals: Labs, Records, Discharge Summary and Other (Psychiatry consult)
ED Attending Note
-
Portions of this chart may have been created with voice recognition software.� Occasional wrong word or��sound alike� substitutions may have occurred due to the inherent limitations of voice recognition software.
Discharge Plan
Departure
Patient Disposition: Psych Facility
Date of Disposition: 01/07/25
Time of Disposition: 02:19
Patient with high blood pressure during this ER visit?: No
Condition: Good
Covid-19: Not Applicable
Discharge Problem:
Suspect bipolar with psychosis
Instructions: Anxiety, Adult (DC)
Prescriptions:
No Action
lisdexamfetamine [Vyvanse] 40 mg capsule
40 mg PO DAILY
Seroquel
25 mg PO HS PRN (Reason: insomnia)
Interventions
Interventions:
*Risk Screen - Suicide Last Done: 01/07/25 01:46
*General Assessment Last Done: 01/07/25 02:54
*Neglect/Abuse Screening Last Done: 01/07/25 02:54
*ED- Fall Risk Assessment Last Done: 01/07/25 15:18
*ED COVID-19 Vaccine History Last Done: 01/07/25 02:54
*Nursing Disposition Last Done: 01/07/25 15:18
ED-Psychological Assessment Last Done: 01/07/25 02:54
Discharge Date and Time
Discharge Date/Time: 01/07/25 15:24
Print Language: OMANI
[2025-01-07 03:37] VITALS: BMI 42.7
[2025-01-07 03:47] LABS: HCG, Serum Qualitative Screen Negative
[2025-01-07 03:54] LABS: % Basophils 0.3 % (0-2); % Immature Granulocytes 0.4 % (0-0.5); % Lymphocytes 9.4 % (20.5-51.1); % Monocytes 6.7 % (1.7-9.3); % Neutrophils 83.2 % (42.2-75.2); Absolute Lymphocytes 0.9 10^3/uL (1.2-3.4); Absolute Monocytes 0.7 10^3/uL (0.1-0.6); Absolute Neutrophils 8.3 10^3/uL (1.4-6.5); Hemoglobin 13.1 g/dL (12.0-16.0); Mean Corp Hgb Conc. 33.6 g/dL (33.0-37.0); Mean Corpuscular Hgb 28.1 pg (27.0-31.0); Mean Corpuscular Volume 83.5 fL (81.0-99.0); Mean Platelet Volume 10.1 fL (7.4-10.4); Nucleated Red Blood Cells % 0 %; Platelet Count 358 10^3/uL (130-400); Red Blood Cell Count 4.67 10^6/uL (4.20-5.40); Red Cell Dist. Width 12.9 % (11.5-14.5)
[2025-01-07 03:55] LABS: Blood Urea Nitrogen 3 mg/dl (7-17); Carbon Dioxide 25 mmol/L (22-30); Chloride 104 mmol/L (98-107); Estimated Creatinine Clearance > 125 ml/min; Glucose 129 mg/dl (70-99); Potassium 3.6 mmol/L (3.5-5.1); Sodium 139 mmol/L (135-145); eGFR > 60.00
[2025-01-07 03:59] LABS: Alcohol None Detected
[2025-01-07 04:23] LABS: TSH Reflex To Free T4 3.08 uIU/ml (0.47-4.68)
[2025-01-07 08:00] VITALS: BP 115/81
[2025-01-07 08:10] LABS: Amphetamines Negative (Negative); Barbiturates Negative (Negative); Benzodiazepines Negative (Negative); Buprenorphine Negative (Negative); Cocaine Negative (Negative); Marijuana Positive (Negative); Methadone Negative (Negative); Methamphetamines Negative (Negative); Opiates Negative (Negative); Phencyclidine Negative (Negative); Tricyclic Antidepressants Negative (Negative)
--- NOTE | 2025-01-07 08:27 | ED.CRISIS ---
ED Crisis Note
ED Crisis Note
Subjective:
Patient cooperative feeling better she got some rest
Objective:
Anxiety prior overdose attempt
Assessment/Plan:
Patient would like to go inpatient reviewed with crisis apparently no grounds, psychiatry evaluation pending
12:30 PM discussed with crisis psychiatry has seen the patient have recommended inpatient [place] is reviewing
[2025-01-07] MEDS: MOTRIN 600 MG PO (11:27)
[2025-01-07] MEDS: ZOFRAN ODT (ORALLY DISINTEGRATING) 4 MG PO (11:27)
[2025-01-07] MEDS: NICODERM TRANSDERMAL 14 MG TRANSDERM (12:40)
--- NOTE | 2025-01-07 13:33 | CS.PSYCHR ---
Consult Summary - Psychiatry
-
Pt seen, discussed with pt's mother, reviewed Crisis assessment. Pt is a 19 yo female with history of overdose in May 2024 treated inpatient, who presents with depression- decreased sleep/appetite/attention to hygiene, passive SI. Pt sees
outpatient psychiatrist, is prescribed several medications but reports she doesn't like them/has not been taking them, except for Vyvanse. On interview, pt awake, alert, making eye contact lying on her side. Pt states she has thoughts of
overdosing, has supply of Rx meds she keeps in her room or bathroom. Pt hesitant to answer questions, staring, appears internally preoccupied, affect appears flat. Pt stated she does not feel safe to return home. Pt has not taken any action in
furtherance of her reported SI. Mother reports pt seems to be developing similar symptoms to last year when she OD'd. Mother reports pt benefited greatly from inpatient tx at [facility] last year, but did not do well in [facility], 'hated' the
groups.
Psych Hx: depression, OD May 2024 resulting in admission to [facility]. Currently sees outpatient psychiatrist for medication mgt, not currently in therapy. Pt states she was in therapy for years in the past
Psych meds: Vyvanse 40 mg QD; Seroquel, Abilify, Effexor XR- reportedly not taking
SH: HS grad, unemployed, lives with parents, vapes MJ
MSE: alert, oriented, making eye contact. Affect somewhat flat, pt hesitant to answer with limited responses, appears internally preoccupied. Pt reports thoughts of OD, denies specific plan or action taken. Insight appears limited to fair
Imp: Major Depression, recurrent, severe, R/o psychotic features
Rec: Reviewed voluntary treatment options- inpatient appears to be the best, given pt's negative experience with IOP last year. PHP is a possible alternative. Pt does not present any grounds for 302/involuntary treatment
Reviewed with Crisis staff, who will follow up with pt and her mother
== END 2025-01-07 15:24 ==
LOC: EMR 01:43
PROVIDERS: Emergency Medicine; CONSULT PHYSICIAN Psychiatry & Neurology Psychiatry; EMERGENCY PHYSICIAN Emergency Medicine
DX: F22 Delusional disorders (principal); Z91.51 Personal history of suicidal behavior
CPT/HCPCS: 99285; 80048; 80306; 82077; 84443; 84703; 85025